=== PATIENT | male | born 1980 | race American Indian/Alaskan Native ===

== ENCOUNTER 2021-04-16 00:09 | Emergency (ER) | payer BC ==
[2021-04-16 01:00] VITALS: BP 138/76
[2021-04-16] MEDS ORDERED: KETOROLAC 30 MG/1 ML INJ IM ONE (01:32)
[2021-04-16] MEDS ORDERED: MORPHINE 4 MG/1 ML INJ IV NR (01:32)
[2021-04-16] MEDS ORDERED: ONDANSETRON 4 MG/2 ML INJ IV NR (01:32)
[2021-04-16] MEDS ORDERED: KETOROLAC 30 MG/1 ML INJ IV NR (01:38)
[2021-04-16 02:10] LABS: Basophils % (Auto) 0.2 % (0.0-1.8); Eosinophils % (Auto) 0.1 % (0.0-4.3); Hemoglobin 12.2 gm/dl (11.8-15.2); Lymphocytes # (Auto) 0.6 K/mm3 (1.2-5.4); Lymphocytes % (Auto) 5.3 % (13.4-35.0); Mean Corpuscular HGB Conc 33 % (32-34); Mean Corpuscular Volume 86 fl (84-94); Monocytes # (Auto) 1.3 K/mm3 (0.0-0.8); Monocytes % (Auto) 11.1 % (0.0-7.3); Platelet Count 186 K/mm3 (140-440); Red Blood Count 4.31 M/mm3 (3.65-5.03); Red Cell Distribution Width 13.1 % (13.2-15.2)
[2021-04-16 02:14] LABS: Alanine Aminotransferase 8 units/L (7-56); Albumin 3.9 g/dL (3.9-5); BUN/Creatinine Ratio 13; Blood Urea Nitrogen 17 mg/dL (9-20); Calcium 8.8 mg/dL (8.4-10.2); Hemolysis Index 5
[2021-04-16] MEDS ORDERED: cefTRIAXone/NS 1 GM/50 ML 1 GM/50 ML BAG IV ONE (03:01)
--- NOTE | 2021-04-16 03:38 | Ultrasound Report ---
ULTRASOUND SCROTUM INDICATION / CLINICAL INFORMATION: RIGHT TESTICULAR PAIN, SWELLING. COMPARISON: None available. FINDINGS -- RIGHT: TESTIS: Size = 4.3 x 2.9 x 2.8 cm. - Appearance: No significant abnormality. - Cyst / Mass: None. - Color Doppler Flow: No significant abnormality. EPIDIDYMIS: Mildly enlarged and heterogeneous. HYDROCELE: Small, mildly complex hydrocele. VARICOCELE: None demonstrated. FINDINGS -- LEFT: TESTIS: Size = 3.8 x 1.6 x 2.5 cm. - Appearance: No significant abnormality. - Cyst / Mass: None. - Color Doppler Flow: No significant abnormality. EPIDIDYMIS: No significant abnormality. HYDROCELE: None. VARICOCELE: None demonstrated. ADDITIONAL FINDINGS: None. IMPRESSION: 1. Possible right epididymitis with small right hydrocele. Signer Name: Juma Chacko MD Signed: 04/16/2021 3:34 AM Workstation Name: [id number]
--- NOTE | 2021-04-16 04:12 | Cat Scan Report ---
CT ABDOMEN AND PELVIS WITH CONTRAST INDICATION / CLINICAL INFORMATION: RLQ abdominal pain. TECHNIQUE: Axial CT images were obtained through the abdomen and pelvis after 100 mL Omnipaque [address] scans at this location are performed using CT dose reduction for ALARA by means of automated exposure control. COMPARISON: None available. FINDINGS: LOWER CHEST: No significant abnormality. LIVER: No significant abnormality. GALLBLADDER: No significant abnormality. BILE DUCTS: No significant abnormality. PANCREAS: No significant abnormality. SPLEEN: No significant abnormality. ADRENALS: No significant abnormality. RIGHT KIDNEY / URETER: No significant abnormality. LEFT KIDNEY / URETER: No significant abnormality. STOMACH / SMALL BOWEL: No significant abnormality. COLON: No significant abnormality. APPENDIX: No significant abnormality. PERITONEUM: No free fluid. No free air. No fluid collection. LYMPH NODES: No significant adenopathy. AORTA / ARTERIES: No significant abnormality. IVC / VEINS: No significant abnormality. URINARY BLADDER: No significant abnormality. REPRODUCTIVE ORGANS: No significant abnormality. ADDITIONAL FINDINGS: None. SKELETAL SYSTEM: Chronic appearing bilateral sacroiliitis with periarticular sclerosis. IMPRESSION: 1. No acute process in the abdomen or pelvis. 2. Chronic appearing bilateral sacroiliitis. Signer Name: Juma Chacko MD Signed: 04/16/2021 4:07 AM Workstation Name: [id number]
[2021-04-16 05:00] LABS: Bilirubin,Urine NEG (Negative); Blood,Urine SM (Negative); Color,Urine Yellow (Yellow); Mucus,Urine FEW /HPF; Protein,Urine <15 mg/dL mg/dL (Negative); Urobilinogen,Urine < 2.0 mg/dL (<2.0)
--- NOTE | 2021-04-16 05:18 | Emergency Department Report ---
ED Male HPI - General Chief complaint: Abdominal Pain Stated complaint: GENITAL PAIN Source: patient Mode of arrival: Ambulatory Limitations: No Limitations - History of Present Illness Initial comments: Patient is a 41-year-old -[place]ish male with no past medical history presents to the ED with complaint of acute onset persistent right testicular pain with swelling and right lower quadrant abdominal pain for the last 2 weeks, worse in the last 3 days. Patient states that the swelling and the pain in the scrotum and right testicle got worse in the last 12 hours. Patient denies fever, chills, nausea, vomiting, diarrhea, dysuria, urinary frequency and urgency, hem aturia, low back pain, dizziness, change in vision, traumatic injury or heavy lifting. MD Complaint: testicle pain (Right testicular pain), testicle swelling (Right testicle and scrotal pain and swelling), other (Right lower quadrant pain) -: Sudden, week(s) (2) - Related Data Previous Rx's Medication Instructions Recorded Last Taken Type Ibuprofen [Motrin] 600 mg PO Q8H PRN #30 tablet 04/16/21 Unknown Rx Ondansetron [Zofran Odt] 4 mg PO Q6HR PRN #15 tab.rapdis 04/16/21 Unknown Rx levoFLOXacin [Levaquin TAB] 500 mg PO QDAY #14 tablet 04/16/21 Unknown Rx traMADoL [Ultram] 50 mg PO Q6HR PRN #12 tablet 04/16/21 Unknown Rx Allergies Allergy/AdvReac Type Severity Reaction Status Date / Time No Known Allergies Allergy Verified 04/16/21 02:45 ED Review of Systems ROS: Stated complaint: GENITAL PAIN Other details as noted in HPI Constitutional: fever, malaise. denies: chills Eyes: denies: eye pain, eye discharge, vision change ENT: denies: ear pain, throat pain Respiratory: denies: cough, shortness of breath, wheezing Cardiovascular: denies: chest pain, palpitations Endocrine: no symptoms reported Gastrointestinal: abdominal pain (Lower abdominal pain). denies: nausea, vomiting, diarrhea Genitourinary: testicular pain (Right testicular pain and scrotal swelling), other (Right inguinal pain). denies: urgency, dysuria Musculoskeletal: denies: back pain, joint swelling, arthralgia Skin: denies: rash, lesions Neurological: denies: headache, weakness, paresthesias Psychiatric: denies: anxiety, depression Hematological/Lymphatic: denies: easy bleeding, easy bruising ED Past Medical Hx - Past Medical History Previous Medical History?: No - Surgical History Past Surgical History?: No - Medications Home Medications: Home Medications Medication Instructions Recorded Confirmed Last Taken Type Ibuprofen [Motrin] 600 mg PO Q8H PRN #30 tablet 04/16/21 Unknown Rx Ondansetron [Zofran Odt] 4 mg PO Q6HR PRN #15 tab.rapdis 04/16/21 Unknown Rx levoFLOXacin [Levaquin TAB] 500 mg PO QDAY #14 tablet 04/16/21 Unknown Rx traMADoL [Ultram] 50 mg PO Q6HR PRN #12 tablet 04/16/21 Unknown Rx ED Physical Exam - General Limitations: No Limitations General appearance: alert, in no apparent distress - Head Head exam: Present: atraumatic, normocephalic, normal inspection - Eye Eye exam: Present: normal appearance, PERRL, EOMI Pupils: Present: normal accommodation - ENT ENT exam: Present: normal exam, normal orophraynx, mucous membranes moist, TM's normal bilaterally, normal external ear exam - Neck Neck exam: Present: normal inspection, full ROM - Respiratory Respiratory exam: Present: normal lung sounds bilaterally. Absent: respiratory distress, wheezes, rales, rhonchi, chest wall tenderness, accessory muscle use, prolonged expiratory - Cardiovascular Cardiovascular Exam: Present: regular rate, normal rhythm, normal heart sounds. Absent: systolic murmur, diastolic murmur, rubs, gallop - GI/Abdominal GI/Abdominal exam: Present: soft, tenderness (Palpable mild right lower quadrant and suprapubic tenderness), normal bowel sounds. Absent: guarding, rebound, hyperactive bowel sounds, hypoactive bowel sounds, organomegaly - exam: Present: testicular tenderness (Right testicular and scrotal swelling and pain), scrotal swelling (Right scrotal swelling and tenderness), c ircumcision. 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 Absent: tenderness, CVA tenderness (R), muscle spasm, paraspinal tenderness, vertebral tenderness - Neurological Exam Neurological exam: Present: alert, oriented X3, CN II-XII intact, normal gait, reflexes normal - Psychiatric Psychiatric exam: Present: normal affect, normal mood - Skin Skin exam: Present: warm, dry, intact, normal color. Absent: rash ED Course Vital Signs 04/16/21 04/16/21 04/16/21 00:59 03:18 03:19 Temperature 100.3 F H Pulse Rate 85 Respiratory 18 18 18 Rate Blood Pressure 138/76 [Right] O2 Sat by Pulse 98 Oximetry ED Medical Decision Making - Lab Data Result diagrams: 04/16/21 01:44 04/16/21 01:44 - Radiology Data Radiology results: report reviewed, image reviewed [facility] [address] [place] [address] Cat Scan Report Signed Patient: GEORGETTE MONCADA MR#: [id number] 6 : 1980 Acct:[id number] Age/Sex: 41 / M ADM Date: 04/16/21 Loc: ED Attending Dr: Ordering Physician: HARJIT RAMOS Date of Service: 04/16/21 Procedure(s): CT abdomen pelvis w con Accession Number(s): [id number] cc: HARJIT RAMOS CT ABDOMEN AND PELVIS WITH CONTRAST INDICATION / CLINICAL INFORMATION: RLQ abdominal pain. TECHNIQUE: Axial CT images were obtained through the abdomen and pelvis after 100 mL Omnipaque [address] scans at this location are performed using CT dose reduction for ALARA by means of automated exposure control. COMPARISON: None available. FINDINGS: LOWER CHEST: No significant abnormality. LIVER: No significant abnormality. GALLBLADDER: No significant abnormality. BILE DUCTS: No significant abnormality. PANCREAS: No significant abnormality. SPLEEN: No significant abnormality. ADRENALS: No significant abnormality. RIGHT KIDNEY / URETER: No significant abnormality. LEFT KIDNEY / URETER: No significant abnormality. STOMACH / SMALL BOWEL: No significant abnormality. COLON: No significant abnormality. APPENDIX: No significant abnormality. PERITONEUM: No free fluid. No free air. No fluid collection. LYMPH NODES: No significant adenopathy. AORTA / ARTERIES: No significant abnormality. IVC / VEINS: No significant abnormality. URINARY BLADDER: No significant abnormality. REPRODUCTIVE ORGANS: No significant abnormality. ADDITIONAL FINDINGS: None. SKELETAL SYSTEM: Chronic appearing bilateral sacroiliitis with periarticular sclerosis. IMPRESSION: 1. No acute process in the abdomen or pelvis. 2. Chronic appearing bilateral sacroiliitis. Signer Name: Juma Chacko MD Signed: 04/16/2021 4:07 AM Workstation Name: [id number] Transcribed By: DT Dictated By: Tom Chacko MD Electronically Authenticated By: Tom Chacko MD Signed Date/Time: 04/16/21 0407 [facility] [address] [place] [address] Ultrasound Report Signed Patient: GEORGETTE MONCADA MR#: [id number] 6 : 1980 Acct:[id number] Age/Sex: 41 / M ADM Date: 04/16/21 Loc: ED Attending Dr: Ordering Physician: HARJIT RAMOS Date of Service: 04/16/21 Procedure(s): US testicular doppler comp Accession Number(s): [id number] cc: HARJIT RAMOS ULTRASOUND SCROTUM INDICATION / CLINICAL INFORMATION: RIGHT TESTICULAR PAIN, SWELLING. COMPARISON: None available. FINDINGS -- RIGHT: TESTIS: Size = 4.3 x 2.9 x 2.8 cm. - Appearance: No significant abnormality. - Cyst / Mass: None. - Color Doppler Flow: No significant abnormality. EPIDIDYMIS: Mildly enlarged and heterogeneous. HYDROCELE: Small, mildly complex hydrocele. VARICOCELE: None demonstrated. FINDINGS -- LEFT: TESTIS: Size = 3.8 x 1.6 x 2.5 cm. - Appearance: No significant abnormality. - Cyst / Mass: None. - Color Doppler Flow: No significant abnormality. EPIDIDYMIS: No significant abnormality. HYDROCELE: None. VARICOCELE: None demonstrated. ADDITIONAL FINDINGS: None. IMPRESSION: 1. Possible right epididymitis with small right hydrocele. Signer Name: Jmua Chacko MD Signed: 04/16/2021 3:34 AM Workstation Name: [id number] Transcribed By: DT Dictated By: Tom Chacko MD Electronically Authenticated By: Tom Chacko MD Signed Date/Time: 04/16/21333 DD/ 1 TD/TT: - Medical Decision Making This is a 41-year-old -[place] male with no past medical history prese nts to the ED with complaint of acute onset persistent right testicular pain with swelling and right lower quadrant abdominal pain for the last 2 weeks, worse in the last 3 days. Patient states that the swelling and the pain in the scrotum and right testicle got worse in the last 12 hours. In the ED, patient is alert and oriented x3 and is not in any distress. Patient was treated for pain in the ED and also given antiemetics and normal saline 1 L IV bolus x1. Lab test results were reviewed and showed acute leukocytosis of 11,500, there is of the lab test results are nonactionable. Abdomen pelvis CT scan with contrast showed no acute abnormalities except for chronic appearing bilateral sacroiliitis. The right testicular ultrasound showed possible right epididymitis with small right hydrocele. Patient received Rocephin 1 g IV x 1. On reevaluation, patient's pain is well controlled with medications. Patient was discharged home on pain medications with oral antibiotics and advised to follow-up with his primary care physician in 7 to 10 days for reevaluation. Patient was advised return to the ED immediately if symptoms get worse. - Differential Diagnosis Testicular torsion; epididymitis; UTI; STD; kidney stones; appendicitis Critical care attestation.: If time is entered above; I have spent that time in minutes in the direct care of this critically ill patient, excluding procedure time. ED Disposition Clinical Impression: Right testicular pain, Acute epididymitis, Abdominal pain in male Disposition: HOME / SELF CARE / HOMELESS Is pt being admited?: No Does the pt Need Aspirin: No Condition: Stable Instructions: Epididymitis (ED), Testicular Self-Exam, [id number], Epididymitis Additional Instructions: All lab test results were reviewed and are all nonactionable. Abdomen pelvis CT scan with contrast showed no acute abnormalities. The right testicular ultrasound showed acute epididymitis with mild hydrocele. Therefore take pain medication as advised with food, drink plenty of fluids, take the antibiotics until the end and follow-up with your primary care physician in 7 to 10 days for reevaluation. Return to the ED immediately if symptoms get worse. Prescriptions: levoFLOXacin [Levaquin TAB] 500 mg PO QDAY #14 tablet Ibuprofen [Motrin] 600 mg PO Q8H PRN #30 tablet PRN Reason: Pain traMADoL [Ultram] 50 mg PO Q6HR PRN #12 tablet PRN Reason: Pain Ondansetron [Zofran Odt] 4 mg PO Q6HR PRN #15 tab.rapdis PRN Reason: Nausea Referrals: [facility] [Provider Group] - 3-5 Days Forms: STI Treatment and Prevention Time of Disposition: 05:18 Print Language: BURUNDIAN
== END 2021-04-16 07:11 | disposition home or self-care (01) ==
LOC: ED 00:09
DX: N50.811 Right testicular pain (principal); N45.1 Epididymitis; R10.30 Lower abdominal pain, unspecified
CPT/HCPCS: 36415; 74177; 80053; 81001; 85025; 93975; 96365; 96375; 99284; J0696; J1885; J2270; J2405; Q9967

== ENCOUNTER 2021-05-24 23:22 | Emergency (ER) | payer BC ==
[2021-05-25] MEDS ORDERED: amLODIPine 10 MG TAB ONE (01:10)
[2021-05-25 04:53] LABS: Alanine Aminotransferase 8 units/L (7-56); Albumin 3.9 g/dL (3.9-5); BUN/Creatinine Ratio 19; Blood Urea Nitrogen 21 mg/dL (9-20); Calcium 8.5 mg/dL (8.4-10.2); Hemolysis Index 5
--- NOTE | 2021-05-25 04:54 | XRay Report ---
XR chest routine 2V INDICATION / CLINICAL INFORMATION: chest pain . COMPARISON: None available. FINDINGS: SUPPORT DEVICES: None. HEART /PULMONARY VASCULATURE: No significant abnormality. LUNGS / PLEURA: No significant pulmonary or pleural abnormality. No pneumothorax. ADDITIONAL FINDINGS: S-shaped curvature of the thoracolumbar spine. No evidence of acute osseous abno rmality. Partially imaged ACDF changes. IMPRESSION: 1. No acute findings. Signer Name: Enrique Murcia MD Signed: 05/25/2021 1:47 AM Workstation Name: [id number]
[2021-05-25 04:56] LABS: Basophils % (Auto) 0.6 % (0.0-1.8); Eosinophils # (Auto) 0.1 K/mm3 (0.0-0.4); Eosinophils % (Auto) 1.6 % (0.0-4.3); Hematocrit 35.5 % (35.5-45.6); Hemoglobin 11.4 gm/dl (11.8-15.2); Lymphocytes % (Auto) 41.1 % (13.4-35.0); Mean Corpuscular HGB Conc 32 % (32-34); Mean Corpuscular Volume 86 fl (84-94); Monocytes # (Auto) 0.5 K/mm3 (0.0-0.8); Monocytes % (Auto) 10.1 % (0.0-7.3); Platelet Count 146 K/mm3 (140-440); Red Blood Count 4.14 M/mm3 (3.65-5.03); Red Cell Distribution Width 13.9 % (13.2-15.2)
--- NOTE | 2021-05-25 05:33 | Emergency Department Report ---
ED General Adult HPI - General Chief complaint: High BP Time Seen by Provider: 05/25/21 04:39 Source: patient, RN notes reviewed Limitations: No Limitations - History of Present Illness Initial comments: Is a 41-year-old male with history of hypertension controlled with amlodipine p.o. Patient states out of medication. States he presented to be checked out as his blood pressure was 197/104 at home. Patient denies headache no dizziness no lightheadedness no nausea or vomiting. Patient did endorse chest pressure. Symptoms are exacerbated by activity and deep breathing. Symptoms are relieved by nothing tried. Patient denies fever there is no productive cough. Patient is concurrently tolerating p.o. intake without nausea vomiting. Patient is a [id number] smoker and occasional EtOH. Patient with no acute distress at this time. - Related Data Previous Rx's Medication Instructions Recorded Last Taken Type Ibuprofen [Motrin] 600 mg PO Q8H PRN #30 tablet 04/16/21 Unknown Rx Ondansetron [Zofran Odt] 4 mg PO Q6HR PRN #15 tab.rapdis 04/16/21 Unknown Rx levoFLOXacin [Levaquin TAB] 500 mg PO QDAY #14 tablet 04/16/21 Unknown Rx traMADoL [Ultram] 50 mg PO Q6HR PRN #12 tablet 04/16/21 Unknown Rx amLODIPine 10 mg PO DAILY #30 tab 05/25/21 Unknown Rx Allergies Allergy/AdvReac Type Severity Reaction Status Date / Time No Known Allergies Allergy Verified 04/16/21 02:45 ED Review of Systems ROS: Stated complaint: Other details as noted in HPI Constitutional: denies: chills, fever Eyes: denies: eye pain, eye discharge, vision change ENT: denies: ear pain, throat pain Respiratory: cough Cardiovascular: denies: chest pain, palpitations, dyspnea on exertion Endocrine: no symptoms reported Gastrointestinal: denies: abdominal pain, nausea, vomiting, diarrhea Genitourinary: denies: urgency, dysuria Musculoskeletal: denies: back pain, joint swelling, arthralgia Skin: denies: rash, lesions Neurological: denies: headache, weakness, paresthesias Psychiatric: denies: anxiety, depression Hematological/Lymphatic: denies: easy bleeding, easy bruising ED Past Medical Hx - Medications Home Medications: Home Medications Medication Instructions Recorded Confirmed Last Taken Type Ibuprofen [Motrin] 600 mg PO Q8H PRN #30 tablet 04/16/21 Unknown Rx Ondansetron [Zofran Odt] 4 mg PO Q6HR PRN #15 tab.rapdis 04/16/21 Unknown Rx levoFLOXacin [Levaquin TAB] 500 mg PO QDAY #14 tablet 04/16/21 Unknown Rx traMADoL [Ultram] 50 mg PO Q6HR PRN #12 tablet 04/16/21 Unknown Rx amLODIPine 10 mg PO DAILY #30 tab 05/25/21 Unknown Rx ED Physical Exam - General General appearance: alert, in no apparent distress - Head Head exam: Present: normocephalic, normal inspection - Eye Eye exam: Present: normal appearance, PERRL, EOMI Pupils: Present: normal accommodation - ENT ENT exam: Present: normal orophraynx, mucous membranes moist, TM's normal bilaterally, normal external ear exam - Neck Neck exam: Present: normal inspection, full ROM. Absent: tenderness, meningismus, lymphadenopathy, thyromegaly - Respiratory Respiratory exam: Present: normal lung sounds bilaterally. Absent: respiratory distress, wheezes, rales, rhonchi, stridor, chest wall tenderness, prolonged expiratory - Cardiovascular Cardiovascular Exam: Present: regular rate, normal rhythm, normal heart sounds. Absent: systolic murmur, diastolic murmur, rubs, gallop - GI/Abdominal GI/Abdominal exam: Present: soft, normal bowel sounds. Absent: distended, tenderness, guarding, rebound, rigid, bruit, hernia - Rectal Rectal exam: Present: deferred, normal inspection - exam: Present: normal inspection - Extremities Exam Extremities exam: Present: normal inspection, full ROM, normal capillary refill. Absent: tenderness - Back Exam Back exam: Present: normal inspection, full ROM. Absent: CVA tenderness (R), CVA tenderness (L) - Neurological Exam Neurological exam: Present: alert, oriented X3, CN II-XII intact, normal gait - Psychiatric Psychiatric exam: Present: normal affect, normal mood - Skin Skin exam: Present: warm, dry, intact, normal color. Absent: rash ED Course Vital Signs 05/25/21 06:06 Temperature 97.7 F Pulse Rate 60 Respiratory 16 Rate Blood Pressure 126/90 [Right] O2 Sat by Pulse 100 Oximetry ED Medical Decision Making - Lab Data Result diagrams: 05/25/21 02:26 05/25/21 04:00 Labs 05/25/21 05/25/21 02:26 04:00 WBC 4.8 RBC 4.14 Hgb 11.4 L Hct 35.5 MCV 86 MCH 28 MCHC 32 RDW 13.9 Plt Count 146 Lymph % (Auto) 41.1 H Esmeralda % (Auto) 10.1 H Eos % (Auto) 1.6 Baso % (Auto) 0.6 Lymph # (Auto) 2.0 Esmeralda # (Auto) 0.5 Eos # (Auto) 0.1 Baso # (Auto) 0.0 Seg Neutrophils % 46.6 Seg Neutrophils # 2.2 Sodium 138 Potassium 3.8 Chloride 102.1 Carbon Dioxide 27 Anion Gap 13 BUN 21 H Creatinine 1.1 Estimated GFR > 60 BUN/Creatinine Ratio 19 Glucose 89 Calcium 8.5 Total Bilirubin 0.40 AST 13 ALT 8 Alkaline Phosphatase 80 Troponin T < 0.010 Total Protein 6.7 Albumin 3.9 Albumin/Globulin Ratio 1.4 - EKG Data EKG shows normal: sinus rhythm, axis, QRS complexes, ST-T waves Rate: normal - EKG Data When compared to previous EKG there are: previous EKG unavailable Interpretation: LVH (Sinus rhythm with prolonged SD interval left ventricular hypertrophy. This is known to patient. No ST elevated AR, EKG interpreted by ED attending.) - Radiology Data Radiology results: report reviewed, image reviewed scoliosis of thoracic spine, no acute finding. EKG : plan - Medical Decision Making EKG : Sinus rhythm with prolonged SD, left ventricular hypertrophy, EKG interpreted by ED attending heart score is 0., chest x-ray normal no infiltrates no opacities, BP 126/84, heart rate is 67, O2 sat is 99% room air. There is no nausea, vomiting. There is no lightheadedness, no dizziness. No fevers or c hills. Patient advised to decrease smoking and EtOH, will refill amlodipine as requested. Patient will follow up with primary care doctor in 2 to 3 days. Patient will return to ER should symptoms worsen. heart score is 0. Critical care attestation.: If time is entered above; I have spent that time in minutes in the direct care of this critically ill patient, excluding procedure time. ED Disposition Clinical Impression: HTN (hypertension) Qualifiers: Hypertension type: primary hypertension Qualified Code(s): I10 - Essential (primary) hypertension Disposition: 01 HOME / SELF CARE / HOMELESS Is pt being admited?: No Does the pt Need Aspirin: No Condition: Stable Instructions: Hypertension (ED), Hypertension, Adult, [id number], Hypertension, Adult Additional Instructions: Take medications as prescribed. Follow-up with your doctor in 2 to 3 days. Return to emergency department should symptoms worsen. Prescriptions: amLODIPine 10 mg PO DAILY #30 tab Referrals: RICKI ALVARENGADELTA MD [facility] [Primary Care Provider] - 3-5 Days ELLYN MARIE MD [Staff Physician] - 3-5 Days Forms: Work/School Release Form(ED) Time of Disposition: 06:23
[2021-05-25 06:07] VITALS: BP 126/90
--- NOTE | 2021-05-25 12:27 | Electrocardiograph Report ---
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
== END 2021-05-25 06:30 | disposition home or self-care (01) ==
LOC: ED 23:22
DX: I10 Essential (primary) hypertension (principal)
CPT/HCPCS: 36415; 71046; 80053; 84484; 85025; 93005; 99283